=== PATIENT | male | born 1985 | race Hispanic/Latino ===

== ENCOUNTER 2017-07-28 16:06 | Emergency (ER) | payer SELFPAY ==
[~2017-07-28] VITALS: Ht 182.9 cm; Wt 61.2 kg
[~2017-07-28 16:06] MED LIST: CIPR500S2 PO; CLIN300C11 PO; MAGIC MOUTHWASH BU; PRM25T PO; PROM25TA14 PO; TRAM50TA2 PO; VALA10004 PO
[2017-07-28] MEDS ORDERED: NS IV 1000 ML 1,000 ML IV ONE (16:11)
--- OUTSIDE RECORDS SUMMARY | 2017-07-28 16:13 | XMS REPORT ---
Author Author MUSA SALGADO [facility] Address [address] [place] [address] Care Team Providers Care Configuration Release Manager Name Role Phone MUSA SALGADO Unavailable PROBLEMS Type Condition ICD9-CM Code EMX14-DF Code Onset Dates Condition Status SNOMED Code Problem Impulse control disorder F63.9 Active 97790667 Problem Social phobia F40.10 Active 42371627 Problem Bipolar affective, depress, unspec F31.30 Active 239410530 Problem Depressive disorder, not elsewhere classified F32.9 Active 02149688 Problem Generalized anxiety disorder F41.1 Active 52214931 Problem Drug dependence F19.20 Active 723041032 Problem Primary insomnia F51.01 Active 8401949 Problem Mood disorder F39 Active 71550214 Problem Other schizophrenia F20.89 Active 73334651 Problem Bipolar 1 disorder F31.9 Active 654875664 Problem Other stimulant dependence, 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 VITAL SIGNS MEDICATIONS Unknown Medications RESULTS No Results PROCEDURES Procedure Date Ordered Related Diagnosis Body Site Psych diagnostic evaluation, established patient Dec 06, 2016 IMMUNIZATIONS No Known Immunizations
--- OUTSIDE RECORDS SUMMARY | 2017-07-28 16:13 | XMS REPORT ---
Author Author DRE ZUÑIGA [facility] eClinicalWorks Address Unknown Phone Unavailable Care Team Providers Care Grind Operator Name Role Phone DRE ZUÑIGA CP Unavailable Allergies, Adverse Reactions, Alerts Substance Reaction Event Type N.K.D.A. Info Not Available Non Drug Allergy Problems Problem Type Condition Code Onset Dates Condition Status Problem Unspecified drug dependence, unspecified abuse 304.90 Active Problem Bipolar I disorder, most recent episode (or current) depressed, unspecified 296.50 Active Problem Generalized anxiety disorder 300.02 Active Problem Anxiety state, unspecified 300.00 Active Assessment Mouth ulcer K12.1 Active Problem Impulse control disorder, unspecified 312.30 Active Problem Depressive disorder, not elsewhere classified 311 Active Medications Medication Code System Code Instructions Start Date End Date Status Dosage Amoxicillin [facility] [address]-55 875 MG Orally every 12 hrs Jul 06, 2016 Jul 16, 2016 1 tablet Chlorhexidine Gluconate [facility] [address]-54 0.12 % Mouth/Throat twice daily Jul 06, 2016 Jul 16, 2016 15 mls Procedures Procedure Coding System Code Date Office Visit, Est Pt., Level 3 CPT-4 60524 Jul 06, 2016 Vital Signs Date/Time: Jul 06, 2016 Blood Pressure Systolic 112 mmHg Cardiac Monitoring Heart Rate 96 bpm Weight 137.8 lbs Blood Pressure Diastolic 76 mmHg Results No Known Results Summary Purpose eClinicalWorks Submission
--- OUTSIDE RECORDS SUMMARY | 2017-07-28 16:13 | XMS REPORT | Continuity of Care Document ---
Author Author [facility] Address Unknown Phone Unavailable Allergies Active Description Code Type Severity Reaction Onset Reported/Identified Relationship to Patient Clinical Status Yes hydrocodone [id number] Drug Allergy Unknown N/A 06/30/2014 Medications Problems Date Dx Coded Attending Type Code Diagnosis Diagnosed By 05/12/2009 MUSA TORREZ 682.0 SKIN ABSCESS OF THE FACE 05/26/2010 MUSA TORREZ 919.5 INSECT BITE INFECTED 05/26/2010 MUSA TORREZ V15.06 ALLERGY TO INSECTS AND ARACHNIDS 05/17/2013 AGUSTIN VICENTE MD Ot 883.0 OPEN WOUND OF FINGER 05/17/2013 AGUSTIN VICENTE MD Ot 914.0 ABRASION HAND 05/17/2013 AGUSTIN VICENTE MD Ot E000.8 OTHER EXTERNAL CAUSE STATUS 05/17/2013 AGUSTIN VICENTE MD Ot E849.0 ACCIDENT IN HOME 05/17/2013 AGUSTIN VICENTE MD Ot E920.8 ACC-CUTTING INSTRUM NEC 06/23/2014 KAMILA NAILS MD Ot 276.51 DEHYDRATION 06/23/2014 KAMILA NAILS MD Ot 599.0 URIN TRACT INFECTION NOS 06/23/2014 KAMILA NAILS MD Ot 787.01 NAUSEA WITH VOMITING 06/23/2014 KAMILA NAILS MD Ot 787.03 VOMITING ALONE 07/01/2014 EDISON MATT DO Ot 276.51 DEHYDRATION 07/01/2014 EDISON MATT DO Ot 276.8 HYPOPOTASSEMIA 07/01/2014 EDISON MATT DO Ot 305.00 ALCOHOL ABUSE-UNSPEC 07/01/2014 EDISON MATT DO Ot 305.20 CANNABIS ABUSE-UNSPEC 07/01/2014 EDISON MATT DO Ot 305.70 AMPHETAMINE ABUSE-UNSPEC 07/01/2014 EDISON MATT DO Ot 518.81 ACUTE RESPIRATORY FAILURE 07/01/2014 EDISON MATT DO Ot 969.72 POISONING BY AMPHETAMINES 07/01/2014 EDISON MATT DO Ot E849.0 ACCIDENT IN HOME 07/01/2014 EDISON MATT DO Ot 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.3 SUICIDE-PSYCHOTROPIC AGT 07/15/2014 DAMIAN EUGENEMF, MUSA W 296.50 MO BIPOLAR I DEPRESSED UNSPECIFIED 07/15/2014 DAMIAN LCMF, MUSA W 300.00 AN ANXIETY UNSPEC 07/15/2014 DAMIAN LCMF, MUSA W 300.02 AN GEN ANXIETY 07/15/2014 DAMIAN LCMF, MUSA W 304.90 SA OTHER SUB ABUSE 07/15/2014 DAMIAN JABIERMF, MUSA W 311 DEPRESSIVE DISORDER NOS 07/15/2014 DAMIAN MF, MUSA W 312.30 I IMPULSE CONTROL DISORDER NOS 10/26/2015 JULES GARCIA, AGUSTIN Jessica Ot F17.210 NICOTINE DEPENDENCE, CIGARETTES, UNCOMPL 10/26/2015 JULES GARCIA, AGUSTIN A Ot R10.9 UNSPECIFIED ABDOMINAL PAIN 10/26/2015 JULES GARCIA, AGUSTIN A Ot R11.10 VOMITING, UNSPECIFIED 12/08/2015 LOC REID CHARGEBACK SPECIALIST Ot F11.10 OPIOID ABUSE, UNCOMPLICATED 12/08/2015 LOC REID CHARGEBACK SPECIALIST Ot F12.10 CANNABIS ABUSE, UNCOMPLICATED 12/08/2015 LOC REID CHARGEBACK SPECIALIST Ot F15.10 OTHER STIMULANT ABUSE, UNCOMPLICATED 12/08/2015 LOC REID CHARGEBACK SPECIALIST Ot M79.5 RESIDUAL FOREIGN BODY IN SOFT TISSUE 12/08/2015 LOC REID CHARGEBACK SPECIALIST Ot R06.00 DYSPNEA, UNSPECIFIED 07/08/2016 MORALES NATION DO Ot A69.1 OTHER VINCENT'S INFECTIONS 07/08/2016 MORALES NATION DO Ot F17.210 NICOTINE DEPENDENCE, CIGARETTES, UNCOMPL 07/08/2016 MORALES NATION DO Ot K04.7 PERIAPICAL ABSCESS WITHOUT SINUS 07/11/2016 MORALES NATION DO Ot A69.1 OTHER VINCENT'S INFECTIONS 07/11/2016 MORALES NATION DO Ot F17.210 NICOTINE DEPENDENCE, CIGARETTES, UNCOMPL 07/11/2016 MORALES NATION DO Ot K04.7 PERIAPICAL ABSCESS WITHOUT SINUS Procedures Code Description Performed By Performed On 96.71 06/30/2014 [id number] PSYCH DIAGNOSTIC EVALUATION 07/15/2014 Results Encounters ACCT No. Visit Date/Time Discharge Status Pt. Type Provider Facility Loc./Unit Complaint [id number] 07/15/2014 12:41:00 07/15/2014 23: 59:59 CLS Outpatient MUSA TORREZ [id number] 07/05/2016 19:52:00 2015 20:17:00 DIS Outpatient MORALES NATION DO [facility] ER ABCESS ON LOWER JAW [id number] 12/08/2015 13:36:00 2015 17:28:00 DIS Emergency LOC REID APRN [facility] ER [id number] 10/26/2015 11:14:00 2014 12:41:00 DIS Emergency AGUSTIN VICENTE MD [facility] ER [id number] 06/30/2014 21:50:00 2013 15:20:00 DIS Inpatient SHAKA BEAUCHAMP EDISON [facility] ICU [id number] 06/23/2014 07:17:00 2013 09:53:00 DIS Emergency KAIMLA NAILS MD [facility] ER [id number] 05/17/2013 02:23:00 2012 03:03:00 DIS Emergency AGUSTIN VICENTE MD [facility] ER
[2017-07-28] MEDS ORDERED: ONDANSETRON 4 MG/2 ML (SDV) Z0FRAN IVP ONE (16:15)
[2017-07-28 17:27] LABS: BASOPHILS % (AUTO) 0 % (0-10); EOSINOPHILS # (AUTO) 0.1 10^3/uL (0.0-0.3); EOSINOPHILS % (AUTO) 0 % (0-10); LYMPHOCYTES # (AUTO) 1.6 X 10^3 (1.0-4.0); LYMPHOCYTES % (AUTO) 11 % (12-44); MEAN CORPUSCULAR HEMOGLOBIN 31 PG (25-34); MEAN CORPUSCULAR HGB CONC 35 G/DL (32-36); MEAN CORPUSCULAR VOLUME 89 FL (80-99); MEAN PLATELET VOLUME 8.8 FL (7.4-10.4); MONOCYTES # (AUTO) 0.7 X 10^3 (0.0-1.0); MONOCYTES % (AUTO) 5 % (0-12); NEUTROPHILS # (AUTO) 12.2 X 10^3 (1.8-7.8); NEUTROPHILS % (AUTO) 84 % (42-75); PLATELET COUNT 226 10^3/uL (130-400); RED BLOOD COUNT 5.14 10^6/uL (4.35-5.85); RED CELL DISTRIBUTION WIDTH 12.2 % (10.0-14.5); WHITE BLOOD COUNT 14.5 10^3/uL (4.3-11.0)
[2017-07-28 17:48] LABS: EOSINOPHILS % (MANUAL) 1 %; LYMPHOCYTES % (MANUAL) 15 %; NEUTROPHILS % (MANUAL) 81 %
[2017-07-28 17:52] LABS: ALANINE AMINOTRANSFERASE 65 U/L (0-55); ALBUMIN 4.7 GM/DL (3.2-4.5); ANION GAP 12 MMOL/L (5-14); ASPARTATE AMINO TRANSFERASE 42 U/L (5-34); BILIRUBIN,TOTAL 0.8 MG/DL (0.1-1.0); BLOOD UREA NITROGEN 10 MG/DL (7-18); BUN/CREATININE RATIO 10; CALCIUM 9.7 MG/DL (8.5-10.1); CARBON DIOXIDE 25 MMOL/L (21-32); CHLORIDE 104 MMOL/L (98-107); CREATININE SERUM 0.98 MG/DL (0.60-1.30); GFR ESTIMATED > 60; GLUCOSE 105 MG/DL (70-105); POTASSIUM 3.9 MMOL/L (3.6-5.0); SODIUM 141 MMOL/L (135-145); TOTAL PROTEIN 7.9 GM/DL (6.4-8.2)
--- NOTE | 2017-07-28 18:06 | Diagnostic Imaging Report ---
INDICATION: Pain and weight loss with vomiting. COMPARISON: 07/01/2014 FINDINGS: Two views of the chest are obtained. The heart size is normal. The pulmonary vessels appear unremarkable. There is no pneumothorax, mediastinal widening or pleural fluid demonstrated. The lungs are clear. The osseous structures appear unremarkable. IMPRESSION: No acute abnormality is demonstrated. Dictated by: Dictated on workstation # [id number]
[2017-07-28 18:29] LABS: BILIRUBIN,URINE NEGATIVE (NEGATIVE); KETONES,URINE NEGATIVE (NEGATIVE); LEUKOCYTE ESTERASE ,URINE NEGATIVE (NEGATIVE); NITRITE,URINE NEGATIVE (NEGATIVE); PH,URINE 5 (5-9); PROTEIN,URINE NEGATIVE (NEGATIVE); UROBILINOGEN,URINE 1 MG/DL (NORMAL)
[2017-07-28 18:36] LABS: CALCIUM OXALATE CRYSTALS,UR FEW /LPF; SQUAMOUS EPITHELIAL CELL,UR RARE /HPF; WBC,URINE 0-2 /HPF
[2017-07-28] MEDS ORDERED: NS 100 ML (IVPB) BAG IV ONE (19:15)
[2017-07-28] MEDS ORDERED: IOHEXOL 350 MG/ML 100 ML (OMNIPAQUE 350) VIAL IV ONE (19:15)
--- NOTE | 2017-07-28 19:20 | ED Abdominal Pain ---
General Chief Complaint: Abdominal/GI Problems Stated Complaint: DISORIENTED,WEAKNESS,VOMITING Nursing Triage Note: c/o intermittant vomiting/abd pain/weight loss for last 3-4 months. Sepsis Screen: No Definite Risk Source of Information: Patient Exam Limitations: No Limitations (ARACELI YANEZ MD) History of Present Illness Time Seen By Provider: 17:05 Initial Comments This 32-year-old man presents to the emergency room with complaints of left lower quadrant abdominal pain, nausea, vomiting with eating, chills, and occasional dysuria over the past 2-3 weeks. He reports the vomiting has been daily when he eats. Urine has been darker recently. Patient has history of remote IV drug use. He requests testing for hepatitis C although he says he has been tested since his last use. He declines HIV testing. He admits to drinking 2 or 3 days per week about 6 shots of hard alcohol per setting. He denies any constipation or diarrhea. He has treated for bipolar disorder and explosive temper at [facility] by Dr. Rowland. His primary care providers Lico Sorensen. (ARACELI YANEZ MD) Initial Comments PT also admits a 30# weight loss in the past 2 months. unexplained. (SANDRA TREVINO) Allergies and Home Medications Allergies Coded Allergies: hydrocodone (Verified Allergy, Unknown, 06/30/14) Home Medications Clindamycin HCl 300 Mg Capsule, 300 MG PO QID, #40 Prescribed by: MORALES NATION on 07/05/162010 Promethazine HCl 25 Mg Tablet, 25 MG PO Q6H PRN for NAUSEA/VOMITING, #10 Prescribed by: AGUSTIN VICENTE on 10/26/15 1212 Tramadol HCl 50 Mg Tablet, 50 MG PO Q4H PRN for PAIN, #14 Prescribed by: AGUSTIN VICENTE on 10/26/15 1212 Valacyclovir HCl 1,000 Mg Tablet, 1,000 MG PO TID, #30 Prescribed by: MORALES NATION on 07/05/162010 [Magic Mouthwash] , 0 BU Q 2 HOURS Prescribed by: MORALES NATION on 07/05/162010 Review of Systems Constitutional: see HPI, chills, diaphoresis EENTM: No Symptoms Reported Respiratory: No Symptoms Reported Cardiovascular: No Symptoms Reported Gastrointestinal: See HPI Genitourinary: See HPI Musculoskeletal: no symptoms reported Skin: no symptoms reported Psychiatric/Neurological: No Symptoms Reported Endocrine: No Symptoms Reported (ARACELI YANEZ MD) Past Xmfplek-Dzpype-Rpwouz Hx Patient Social History Alcohol Use: Regular Use Number of Drinks Today: 6 Alcohol Beverage of Choice: Other (hard alcohol) Recreational Drug Use: Yes Drug of Choice: marijuana Smoking Status: Current Everyday Smoker Type Used: Cigarettes Recent Foreign Travel: No Contact w/Someone Who Travel: No Recent Infectious Disease Expo: No Recent Hopitalizations: No (ARACELI YANEZ MD) Immunizations Up To Date Tetanus Booster (TDap): More than 5yrs (ARACELI YANEZ MD) Seasonal Allergies Seasonal Allergies: No (ARACELI YANEZ MD) Surgeries History of Surgeries: Yes Surgeries: Orthopedic (ARACELI YANEZ MD) Respiratory History of Respiratory Disorde: Yes Respiratory Disorders: Asthma (ARACELI YANEZ MD) Cardiovascular History of Cardiac Disorders: No (ARACELI YANEZ MD) Neurological History of Neurological Disord: No (ARACELI YANEZ MD) Reproductive System Hx Reproductive Disorders: No Sexually Transmitted Disease: No HIV/AIDS: No (ARACELI YANEZ MD) Genitourinary History of Genitourinary Disor: No (ARACELI YANEZ MD) Gastrointestinal History of Gastrointestinal Di: No Gastrointestinal Disorders: Ulcer (ARACELI YANEZ MD) Musculoskeletal History of Musculoskeletal Dis: No (ARACELI YANEZ MD) Endocrine History of Endocrine Disorders: No (ARACELI YANEZ MD) HEENT History of HEENT Disorders: No (ARACELI YANEZ MD) Cancer History of Cancer: No (ARACELI YANEZ MD) Psychosocial History of Psychiatric Problem: Yes Behavioral Health Disorders: ADD/ADHD, Anxiety, Suicide Attempts, Bipolar, Depression (ARACELI YANEZ MD) Integumentary History of Skin or Integumenta: No (ARACELI YANEZ MD) Family Medical History Significant Family History: No Pertinent Family Hx, Cancer (lung Aura leukemia) , COPD, Seizures Family Medial History: FHx: COPD (chronic obstructive pulmonary disease) FHx: leukemia 19 FATHER Seizure disorder 19 MOTHER No Family History of: Cardiovascular disease Dementia Diabetes mellitus Myocardial infarction (ARACELI YANEZ MD) Family Medial History: FHx: COPD (chronic obstructive pulmonary disease) FHx: leukemia 19 FATHER Seizure disorder 19 MOTHER No Family History of: Cardiovascular disease Dementia Diabetes mellitus Myocardial infarction (SANDRA TREVINO) Physical Exam Vital Signs VS - Last 72 Hours, by Label 07/28/17 17:04 Temp 97.5 Pulse 90 Resp 18 B/P (MAP) 118/70 O2 Delivery Room Air (SANDRA TREVINO) Vital Signs Capillary Refill : Less Than 3 Seconds (ARACELI YANEZ MD) General Appearance: WD/WN, no apparent distress HEENT: PERRL/EOMI, normal ENT inspection, pharynx normal Neck: normal inspection Respiratory: lungs clear, normal breath sounds, no respiratory distress, no accessory muscle use Cardiovascular: regular rate, rhythm, no edema, no murmur Gastrointestinal: normal bowel sounds, soft, tenderness (left lower quadrant) Extremities: normal inspection, no pedal edema Back: normal inspection, no CVA tenderness Neurologic/Psychiatric: slackline operator II-XII nml as tested, no motor/sensory deficits, alert, normal mood/affect, oriented x 3 Skin: normal color, diaphoresis (ARACELI YANEZ MD) Progress/Results/Core Measures Results/Orders Lab Results Laboratory Tests Test 07/28/17 17:20 07/28/17 17:35 07/28/17 17:46 07/28/17 18:18 Range/Units White Blood Count 14.5 H 4.3-11.0 10^3/uL Red Blood Count 5.14 4.35-5.85 10^6/uL Hemoglobin 15.9 13.3-17.7 G/DL Hematocrit 46 40-54 % Mean Corpuscular Volume 89 80-99 FL Mean Corpuscular Hemoglobin 31 25-34 PG Mean Corpuscular Hemoglobin Concent 35 32-36 G/DL Red Cell Distribution Width 12.2 10.0-14.5 % Platelet Count 226 130-400 10^3/uL Mean Platelet Volume 8.8 7.4-10.4 FL Neutrophils (%) (Auto) 84 H 42-75 % Lymphocytes (%) (Auto) 11 L 12-44 % Monocytes (%) (Auto) 5 0-12 % Eosinophils (%) (Auto) 0 0-10 % Basophils (%) (Auto) 0 0-10 % Neutrophils # (Auto) 12.2 H 1.8-7.8 X 10^3 Lymphocytes # (Auto) 1.6 1.0-4.0 X 10^3 Monocytes # (Auto) 0.7 0.0-1.0 X 10^3 Eosinophils # (Auto) 0.1 0.0-0.3 10^3/uL Basophils # (Auto) 0.0 0.0-0.1 10^3/uL Neutrophils % (Manual) 81 % Lymphocytes % (Manual) 15 % Monocytes % (Manual) 3 % Eosinophils % (Manual) 1 % Blood Morphology Comment NORMAL Sodium Level 141 135-145 MMOL/L Potassium Level 3.9 3.6-5.0 MMOL/L Chloride Level 104 98-107 MMOL/L Carbon Dioxide Level 25 21-32 MMOL/L Anion Gap 12 5-14 MMOL/L Blood Urea Nitrogen 10 7-18 MG/DL Creatinine 0.98 0.60-1.30 MG/DL Estimat Glomerular Filtration Rate > 60 BUN/Creatinine Ratio 10 Glucose Level 105 70-105 MG/DL Calcium Level 9.7 8.5-10.1 MG/DL Magnesium Level 2.0 1.8-2.4 MG/DL Total Bilirubin 0.8 0.1-1.0 MG/DL Aspartate Amino Transf (AST/SGOT) 42 H 5-34 U/L Alanine Aminotransferase (ALT/SGPT) 65 H 0-55 U/L Alkaline Phosphatase 58 40-136 U/L Total Protein 7.9 6.4-8.2 GM/DL Albumin 4.7 H 3.2-4.5 GM/DL Lipase 11 8-78 U/L Serum Alcohol < 10 <10 MG/DL Urine Color YELLOW Urine Clarity CLEAR Urine pH 5 5-9 Urine Specific [place] 1.025 H 1.016-1.022 Urine Protein NEGATIVE NEGATIVE Urine Glucose (UA) NEGATIVE NEGATIVE Urine Ketones NEGATIVE NEGATIVE Urine Nitrite NEGATIVE NEGATIVE Urine Bilirubin NEGATIVE NEGATIVE Urine Urobilinogen 1 NORMAL MG/DL Urine Leukocyte Esterase NEGATIVE NEGATIVE Urine RBC (Auto) 1+ H NEGATIVE Urine RBC NONE /HPF Urine WBC 0-2 /HPF Urine Squamous Epithelial Cells RARE /HPF Urine Crystals PRESENT H /LPF Urine Calcium Oxalate Crystals FEW H /LPF Urine Bacteria TRACE /HPF Urine Casts NONE /LPF Urine Mucus SMALL H /LPF Urine Culture Indicated NO Urine Opiates Screen NEGATIVE NEGATIVE Urine Oxycodone Screen NEGATIVE NEGATIVE Urine Methadone Screen NEGATIVE NEGATIVE Urine Propoxyphene Screen NEGATIVE NEGATIVE Urine Barbiturates Screen NEGATIVE NEGATIVE Ur Tricyclic Antidepressants Screen POSITIVE H NEGATIVE Urine Phencyclidine Screen NEGATIVE NEGATIVE Urine Amphetamines Screen NEGATIVE NEGATIVE Urine Methamphetamines Screen NEGATIVE NEGATIVE Urine Benzodiazepines Screen NEGATIVE NEGATIVE Urine Cocaine Screen NEGATIVE NEGATIVE Urine Cannabinoids Screen POSITIVE H NEGATIVE (SANDRA TREVINO) Medications Given in ED Current Medications Medications Dose Ordered Sig/Berna Route Start Time Stop Time Status Last Admin Dose Admin Iohexol 100 ml ONCE ONCE IV 07/28/17 19:15 07/28/17 19:16 DC 07/28/17 19:39 100 ML Ondansetron HCl 8 mg ONCE ONCE IVP 07/28/17 16:15 07/28/17 16:16 DC 07/28/17 17:24 8 MG Sodium Chloride 100 ml ONCE ONCE IV 07/28/17 19:15 07/28/17 19:16 DC 07/28/17 19:39 80 ML Sodium Chloride 1,000 ml @ 0 mls/hr Q0M ONCE IV 07/28/17 16:11 07/28/17 16:13 DC 07/28/17 17:24 0 MLS/HR (SANDRA TREVINO) Vital Signs/I&O Vital Sign - Last 12Hours 07/28/17 17:04 Temp 97.5 Pulse 90 Resp 18 B/P (MAP) 118/70 O2 Delivery Room Air (SANDRA TREVINO) Blood Pressure Mean: 86 Progress Note : Time: 19:00 Progress Note Patient's nausea was treated with Zofran. IV fluids were infused. Labs demonstrated leukocytosis without without any other major abnormalities. Further assessment was offered with CT scan. Patient would like to have this performed. Care of this patient was transferred to Dr. Trevino at this time. (ARACELI YANEZ MD) Progress Note : Time: 20:14 Progress Note No overt reason for his weight loss or N/V/ will send Zofran and have him F/U later this week or early next with PCP for the send out labs. Rec strongly that he be tested for HIV. Last check was 4 years ago. Pt just wants to go home at this time. (SANDRA TREVINO) Diagnostic Imaging Diagonstic Imaging: CT Plain Films/CT/US/NM/MRI: abdomen, pelvis Comments NAME: REGAN ARAYA [facility] REC#: [id number] PT STATUS: REG ER : 1985 PHYSICIAN: ARACELI YANEZ MD ADMIT DATE: 07/28/17/ER Draft Date of Exam:07/28/17 CT ABDOMEN/PELVIS W PROCEDURE: CT abdomen and pelvis with contrast. TECHNIQUE: Multiple contiguous axial images were obtained through the abdomen and pelvis after administration of intravenous contrast. INDICATION: Abdominal pain with nausea and emesis. COMPARISON is made to the study of 05/11/2008. FINDINGS: There is low-density in the liver which is likely due to fatty infiltration. No focal hepatic lesion is identified. There is a 1 cm cystic structure seen in the medial spleen. There is no evidence of gallbladder or pancreatic lesion identified. The adrenal glands and kidneys are unremarkable in appearance. There is no evidence of free fluid. There is no pathologically enlarged adenopathy. No free fluid is seen in the abdomen or pelvis. The partially opacified urinary bladder reveals no additional abnormality. IMPRESSION: Development of a 1 cm cystic structure in the spleen which has a benign appearance. Otherwise, there is hepatic steatosis without acute abnormality seen within the abdomen or pelvis. In particular, there is no evidence of appendiceal inflammation. Dictated on workstation # [id number] Dict: 07/28/171952 Trans: 07/28/172004 [facility] [id number] Interpreted by: SAVANNAH COLES MD Electronically signed by: Reviewed: Reviewed by Me Diagonstic Imaging: Xray Plain Films/CT/US/NM/MRI: chest Comments NAME: REGAN ARAYA [facility] REC#: [id number] PHYSICIAN: ARACELI YANEZ MD CC: ARACELI YANEZ MD; TIMOTEO VICENTE DO Page 1 of 1 RADIOLOGY REPORT [facility] [place], [place] CC: ARACELI YANEZ MD; TIMOTEO VICENTE DO Page 1 of 1 RADIOLOGY REPORT NAME: REGAN ARAYA [facility] REC#: [id number] PT STATUS: REG ER : 1985 PHYSICIAN: ARACELI YANEZ MD ADMIT DATE: 07/28/17/ER Signed Date of Exam: 07/28/17 CHEST PA/LAT (2 VIEW) INDICATION: Pain and weight loss with vomiting. COMPARISON: 07/01/2014 FINDINGS: Two views of the chest are obtained. The heart size is normal. The pulmonary vessels appear unremarkable. There is no pneumothorax, mediastinal widening or pleural fluid demonstrated. The lungs are clear. The osseous structures appear unremarkable. IMPRESSION: No acute abnormality is demonstrated. Dictated by: Dictated on workstation # [id number] Dict: 07/28/171801 Trans: 07/28/171805 Interpreted by: TIMOTEO VICENTE DO Electronically signed by: TIMOTEO VICENTE DO 07/28/171805 Reviewed: Reviewed by Me (SANDRA TREVINO) Departure Impression Impression: Primary Impression: Unexplained weight loss Additional Impression: Nausea and vomiting Qualified Codes: R11.2 - Nausea with vomiting, unspecified Disposition: HOME, SELF-CARE Condition: Improved Departure-Patient Inst. Decision time for Depature: 20:22 (SANDRA TREVINO) Referrals: NO,LOCAL PHYSICIAN (PCP) [place] [facility] [facility] [place]ructions: Nausea and Vomiting, Adult (DC) Add. Discharge Instructions: take Zofran under the tongue every 6 hours and let it dissolve as needed for nausea or vomting. Call Lico Sorensen at [facility] at [phone] tomorrow morning to get seen later this week or next to follow up the labs done today and further workup of your Nausea dn unexplained weight loss. All discharge instructions reviewed with patient and/or family. Voiced understanding. Scripts Ondansetron (Ondansetron Odt) 4 Mg Tab.rapdis 4 MG PO Q6H Y for NAUSEA/VOMITING, #12 TAB 0 Refills Prov: SANDRA TREVINO 07/28/17 Copy Copies To 1: CAMILO LAWTON JOSHUA T MD Jul 28, 2017 19:20 SANDRA TREVINO Jul 28, 2017 20:10
--- NOTE | 2017-07-28 20:06 | Diagnostic Imaging Report ---
PROCEDURE: CT abdomen and pelvis with contrast. TECHNIQUE: Multiple contiguous axial images were obtained through the abdomen and pelvis after administration of intravenous contrast. INDICATION: Abdominal pain with nausea and emesis. COMPARISON is made to the study of 05/11/2008. FINDINGS: There is low-density in the liver which is likely due to fatty infiltration. No focal hepatic lesion is identified. There is a 1 cm cystic structure seen in the medial spleen. There is no evidence of gallbladder or pancreatic lesion identified. The adrenal glands and kidneys are unremarkable in appearance. There is no evidence of free fluid. There is no pathologically enlarged adenopathy. No free fluid is seen in the abdomen or pelvis. The partially opacified urinary bladder reveals no additional abnormality. IMPRESSION: Development of a 1 cm cystic structure in the spleen which has a benign appearance. Otherwise, there is hepatic steatosis without acute abnormality seen within the abdomen or pelvis. In particular, there is no evidence of appendiceal inflammation. Dictated by: Dictated on workstation # [id number]
[2017-07-28] MEDS ORDERED: ONDA4TAB11 PO ×2 (20:25→20:26)
[2017-07-28] MEDS ORDERED: RX-ONDANSETRON 4 MG ODT (ZOFRAN) PPK #4 PO STA (20:27)
[2017-07-28 20:40] VITALS: BP 110/68
[2017-07-30 06:55] LABS: HCV INDEX >11.00 Index (0.00-0.79)
[2017-07-31 08:17] LABS: CHLAMYDIA DNA URINE Not Detected (Not Detected); NEISSERIA GONORRHEA DNA URINE Not Detected (Not Detected)
== END 2017-07-28 20:40 | disposition home or self-care (01) ==
LOC: EDUNIT# 16:06 → ER 16:07
DX: R63.4 Abnormal weight loss (principal); R11.2 Nausea with vomiting, unspecified; F31.9 Bipolar disorder, unspecified; F41.9 Anxiety disorder, unspecified; F90.9 Attention-deficit hyperactivity disorder, unspecified type; J45.909 Unspecified asthma, uncomplicated; F17.210 Nicotine dependence, cigarettes, uncomplicated; Z80.6 Family history of leukemia; Z91.5 Personal history of self-harm; Z87.11 Personal history of peptic ulcer disease
CPT/HCPCS: 36415; 71020; 74177; 80053; 80074; 80306; 80320; 81000; 83690; 83735; 85007; 85027; 87491; 87591; 96361; 96374

== ENCOUNTER 2020-01-24 13:13 | Emergency (ER) | payer MEDICAID, OTHER ==
[~2020-01-24] VITALS: Ht 185.4 cm; Wt 68.1 kg
[~2020-01-24 13:13] MED LIST changes: +ONDA4TAB11 PO; -TRAM50TA2 PO; +TRM50T PO
[2020-01-24] MEDS ORDERED: TIZA4TAB4 (13:31)
[2020-01-24] MEDS ORDERED: SMZ/TMP (13:31)
--- NOTE | 2020-01-24 14:48 | ED GU-Male ---
General Chief Complaint: Male Reproductive Stated Complaint: SWOLLEN TESTICLES Nursing Triage Note: AMB TO HAS BEEN DX WITH EPIDIYMITIS. DX 01/[address] QUINTANILLA ON 12/28 CON'T TO HAVE PAIN IN ON BACTRIM WAS ON CIPRO HAS HAD PAIN FOR A MONTH. Source: patient Exam Limitations: no limitations History of Present Illness Date Seen by Provider: Jan 24, 2020 Time Seen by Provider: 14:46 Initial Comments To ER with scrotal pain for 1 month. He was initially given Cipro, no improvement, changed to Bactrim 2 weeks ago, he still on that. 2 weeks ago he had a CT, ultrasound of the testicles done showing epididymitis (studies were done at [facility]). He has an appointment with Dr. Lang from urology at [place] on this Friday. He is here today because of pain. Severity/Quality: moderate Location: scrotal Activities at Onset: none Allergies and Home Medications Allergies Coded Allergies: lithium (Verified Allergy, Unknown, 01/24/20) paliperidone (Verified Allergy, Unknown, 01/24/20) Home Medications Hydrocodone/Acetaminophen 1 Each Tablet, 1 TAB PO Q6H Prescribed by: LOC REID on 01/24/20 1536 Patient Home Medication List Home Medication List Reviewed: Yes Review of Systems Review of Systems Constitutional: see HPI EENTM: see HPI Respiratory: no symptoms reported Cardiovascular: no symptoms reported Genitourinary: see HPI, pain Musculoskeletal: no symptoms reported Skin: no symptoms reported Psychiatric/Neurological: No Symptoms Reported Endocrine: No Symptoms Reported Past Txucuct-Xpwptn-Zlseqx Hx Patient Social History Alcohol Use: Denies Use Number of Drinks Today: II Alcohol Beverage of Choice: Other Recreational Drug Use: No Drug of Choice: marijuana Smoking Status: Current Everyday Smoker Type Used: Cigarettes Recent Foreign Travel: No Contact w/Someone Who Travel: No Recent Infectious Disease Expo: No Recent Hopitalizations: No Immunizations Up To Date Tetanus Booster (TDap): More than 5yrs Seasonal Allergies Seasonal Allergies: No Past Medical History Surgeries: Yes Orthopedic Respiratory: Yes Asthma Cardiac: No Neurological: No Reproductive Disorders: No Sexually Transmitted Disease: No HIV/AIDS: No Genitourinary: No Gastrointestinal: No Ulcer Musculoskeletal: No Endocrine: No HEENT: No Cancer: No Psychosocial: Yes ADD/ADHD, Anxiety, Suicide Attempts, Bipolar, Depression Integumentary: No Blood Disorders: No Family Medical History FHx: COPD (chronic obstructive pulmonary disease) FHx: leukemia 19 FATHER Seizure disorder 19 MOTHER No Family History of: Cardiovascular disease Dementia Diabetes mellitus Myocardial infarction No Pertinent Family Hx, Cancer, COPD, Seizures Physical Exam Vital Signs Vital Signs - First Documented 01/24/20 13:18 Temp 36.9 Pulse 82 Resp 18 B/P (MAP) 111/73 (86) Pulse Ox 100 O2 Delivery Room Air Capillary Refill : Less Than 3 Seconds Height, Weight, BMI Height: 6'0" Weight: 135lbs. 12.0oz. [id number]; 19.00 BMI Method:Stated General Appearance: WD/WN, no apparent distress, thin HEENT: PERRL/EOMI, normal ENT inspection Neck: non-tender, full range of motion Respiratory: no respiratory distress, no accessory muscle use Gastrointestinal: normal bowel sounds, non tender Male: testicular tenderness (bilateral testicular tenderness, slight enlargement of the left testicle as compared to the right, the swelling is very minimal at best.) Extremities: normal range of motion, non-tender Neurologic/Psychiatric: alert, normal mood/affect, oriented x 3 Skin: normal color, warm/dry Progress/Results/Core Measures Suspected Sepsis Recent Fever Within 48 Hours: No Infection Criteria Present: Documented Infection New/Unexplained Altered Menta: No Sepsis Screen: No Definite Risk SIRS Temperature: Pulse: 82 Respiratory Rate: 18 Blood Pressure 111 /73 Mean: 86 Results/Orders Lab Results Laboratory Tests Test 01/24/20 14:38 Range/Units Urine Color YELLOW Urine Clarity CLEAR Urine pH 7.0 5-9 Urine Specific [place] 1.010 L 1.016-1.022 Urine Protein NEGATIVE NEGATIVE Urine Glucose (UA) NEGATIVE NEGATIVE Urine Ketones NEGATIVE NEGATIVE Urine Nitrite NEGATIVE NEGATIVE Urine Bilirubin NEGATIVE NEGATIVE Urine Urobilinogen 0.2 < = 1.0 MG/DL Urine Leukocyte Esterase NEGATIVE NEGATIVE Urine RBC (Auto) NEGATIVE NEGATIVE Urine RBC NONE /HPF Urine WBC NONE /HPF Urine Squamous Epithelial Cells RARE /HPF Urine Crystals NONE /LPF Urine Bacteria NEGATIVE /HPF Urine Casts NONE /LPF Urine Mucus NEGATIVE /LPF Urine Culture Indicated NO Urine Opiates Screen NEGATIVE NEGATIVE Urine Oxycodone Screen NEGATIVE NEGATIVE Urine Methadone Screen NEGATIVE NEGATIVE Urine Propoxyphene Screen NEGATIVE NEGATIVE Urine Barbiturates Screen NEGATIVE NEGATIVE Ur Tricyclic Antidepressants Screen NEGATIVE NEGATIVE Urine Phencyclidine Screen NEGATIVE NEGATIVE Urine Amphetamines Screen NEGATIVE NEGATIVE Urine Methamphetamines Screen NEGATIVE NEGATIVE Urine Benzodiazepines Screen NEGATIVE NEGATIVE Urine Cocaine Screen NEGATIVE NEGATIVE Urine Cannabinoids Screen NEGATIVE NEGATIVE My Orders Orders - LOC REID APRN Ua Culture If Indicated (01/24/20 14:41) Drug Screen Stat (Urine) (01/24/20 14:41) Us Scrotum (Testicle) [id number] (01/24/20 14:41) Hydrocodone/Apap 5/325 Tablet (Lortab 5 (01/24/20 15:00) Medications Given in ED Vital Signs/I&O 01/24/20 01/24/20 13:18 15:41 Temp 36.9 36.9 Pulse 82 82 Resp 18 18 B/P (MAP) 111/73 (86) 111/73 (86) Pulse Ox 100 100 O2 Delivery Room Air Capillary Refill : Less Than 3 Seconds Blood Pressure Mean: 86 Departure Impression Primary Impression: Testicular pain Additional Impression: Hydrocele Disposition: 01 HOME, SELF-CARE Condition: Stable Departure-Patient Inst. Decision time for Depature: 15:34 Referrals: NO,LOCAL PHYSICIAN (PCP/Family) Primary Care Physician Patient Instructions: Epididymitis (DC), Hydrocele/Varicocele (DC), Prostatitis (DC) Add. Discharge Instructions: 1. 1. Return to ER for any concerns. Continue the antibiotics. Keep her appointment with urologist this Friday. 2. All discharge instructions reviewed with patient and/or family. Voiced understanding. Scripts Hydrocodone/Acetaminophen ([place] 5-325 Tablet) 1 Each Tablet 1 TAB PO Q6H for Pain MDD 10 TABS for 7 Days, #10 TAB Prov: LOC REID APRN 01/24/20 LOC REID APRN Jan 24, 2020 14:48
[2020-01-24 14:50] LABS: BILIRUBIN,URINE NEGATIVE (NEGATIVE); CLARITY,URINE CLEAR; COLOR,URINE YELLOW; GLUCOSE, URINE (UA) NEGATIVE (NEGATIVE); KETONES,URINE NEGATIVE (NEGATIVE); LEUKOCYTE ESTERASE ,URINE NEGATIVE (NEGATIVE); NITRITE,URINE NEGATIVE (NEGATIVE); PROTEIN,URINE NEGATIVE (NEGATIVE)
[2020-01-24] MEDS ORDERED: HYDROcodone/APAP 5 MG/325 MG (LORTAB) TAB PO ONE (15:00)
[2020-01-24 15:09] LABS: BACTERIA,URINE NEGATIVE /HPF; SQUAMOUS EPITHELIAL CELL,UR RARE /HPF
[2020-01-24 15:29] LABS: AMPHETAMINE SCREEN, URINE NEGATIVE (NEGATIVE); BARBITURATE SCREEN URINE NEGATIVE (NEGATIVE); BENZODIAZEPINES SCREEN URINE NEGATIVE (NEGATIVE); CANNABINOID SCREEN, URINE NEGATIVE (NEGATIVE); COCAINE SCREEN URINE NEGATIVE (NEGATIVE); METHADONE STAT NEGATIVE (NEGATIVE); METHAMPHETAMINE SCREEN URINE S NEGATIVE (NEGATIVE); OPIATE SCREEN URINE NEGATIVE (NEGATIVE); OXYCODONE STAT NEGATIVE (NEGATIVE); PROPOXYPHENE STAT NEGATIVE (NEGATIVE); TRICYCLIC ANTIDEPRESSANTS SCRE NEGATIVE (NEGATIVE)
[2020-01-24] MEDS ORDERED: HYDR-4226 PO (15:35)
[2020-01-24 15:41] VITALS: BP 111/73
--- NOTE | 2020-01-24 16:09 | Diagnostic Imaging Report ---
INDICATION: Swollen testicles TECHNIQUE: Real-time grayscale sonographic imaging and color vascular evaluation of the scrotum. CORRELATION STUDY: None FINDINGS: RIGHT TESTICLE: 4.7 x 2.8 x 2.4 cm. LEFT TESTICLE: 4.6 x 2.8 x 2.0 cm. The testicles are in normal location and demonstrate homogeneous echotexture. There is vascular flow to the testicles. The epididymides appear unremarkable. There is presence of small to moderate sized bilateral hydroceles. IMPRESSION: 1. Small to moderate-sized bilateral hydroceles. Otherwise, unremarkable appearing scrotal ultrasound examination. Dictated by: Dictated on workstation # [id number]
== END 2020-01-24 15:41 | disposition home or self-care (01) ==
LOC: EDUNIT# 13:13 → ER 13:14
DX: N43.3 Hydrocele, unspecified (principal); F17.210 Nicotine dependence, cigarettes, uncomplicated; Z88.8 Allergy status to other drugs, medicaments and biological substances
CPT/HCPCS: 76870; 80306; 81000

== ENCOUNTER 2020-07-27 01:44 | Emergency (ER) | payer MEDICAID ==
[~2020-07-27] VITALS: Ht 185 cm; Wt 72.0 kg
[~2020-07-27 01:44] MED LIST changes: +HYDR-4226 PO; +SMZ/TMP; +TIZA4TAB4
--- NOTE | 2020-07-27 02:01 | ED GU-Male ---
General Chief Complaint: Male Reproductive Stated Complaint: SWOLLEN TESTICLES Source: patient Exam Limitations: no limitations History of Present Illness Date Seen by Provider: Jul 27, 2020 Time Seen by Provider: 01:44 Initial Comments patient presents to ER by private conveyance with chief complaint that his testicles both feel swollen and a lot of pressure. No dysuria or discharge. He says he had the same problems a few months ago and took antibiotics. It came back yesterday and has progressively gotten worse. No history of undescended testicle, hernias or surgery. in January, 6 months ago the patient presents for similar complaints. He was being treated on Cipro and Bactrim outpatient. He was to follow-up with Dr. Lang, urology and [facility]. He had ultrasound of the testicles of that time showing epididymitis. The patient says last time he saw Dr. Mcfarlane he wasn't having any problems and was told to follow-up only as needed. He recently moved here and is wanting to follow with a local urologist. Allergies and Home Medications Allergies Coded Allergies: lithium (Verified Allergy, Unknown, 01/24/20) paliperidone (Verified Allergy, Unknown, 01/24/20) Home Medications Doxycycline Hyclate 100 Mg Tablet, 100 MG PO BID Prescribed by: SANDRA HARVEY on 07/27/20 0206 Hydrocodone/Acetaminophen 1 Each Tablet, 1 TAB PO Q6H Prescribed by: LOC REID on 01/24/20 1536 Hydrocodone/Acetaminophen 1 Each Tablet, 1 EACH PO Q6H PRN for PAIN-BREAKTHROUGH Prescribed by: SANDRA HARVEY on 07/27/20 0206 Patient Home Medication List Home Medication List Reviewed: Yes Review of Systems Review of Systems Constitutional: No chills, No diaphoresis EENTM: No ear discharge, No ear pain Respiratory: No cough, No short of breath Cardiovascular: No chest pain, No Hx of Intervention, No palpitations Gastrointestinal: No abdominal pain, No nausea, No vomiting Genitourinary: see HPI; denies burning, denies discharge, denies dysuria Musculoskeletal: No back pain, No joint pain All Other Systemes Reviewed Negative Unless Noted: Yes Past Tgvxyxi-Jojduj-Fbcjqx Hx Patient Social History Alcohol Use: Denies Use Alcohol Beverage of Choice: Other Recreational Drug Use: Yes Drug of Choice: marijuana Smoking Status: Current Everyday Smoker Type Used: Cigarettes Recent Foreign Travel: No Contact w/Someone Who Travel: No Recent Hopitalizations: No Immunizations Up To Date Tetanus Booster (TDap): More than 5yrs Seasonal Allergies Seasonal Allergies: No Past Medical History Surgeries: Yes Orthopedic Respiratory: Yes Asthma Cardiac: No Neurological: No Reproductive Disorders: No Sexually Transmitted Disease: No HIV/AIDS: No Genitourinary: No Gastrointestinal: No Ulcer Musculoskeletal: No Endocrine: No HEENT: No Cancer: No Psychosocial: Yes ADD/ADHD, Anxiety, Suicide Attempts, Bipolar, Depression Integumentary: No Blood Disorders: No Family Medical History FHx: COPD (chronic obstructive pulmonary disease) FHx: leukemia 19 FATHER Seizure disorder 19 MOTHER No Family History of: Cardiovascular disease Dementia Diabetes mellitus Myocardial infarction No Pertinent Family Hx, Cancer, COPD, Seizures Physical Exam Vital Signs Vital Signs - First Documented 07/27/20 01:55 Temp 36.6 Pulse 114 Resp 18 B/P (MAP) 157/100 (119) Pulse Ox 99 O2 Delivery Room Air Capillary Refill : Height, Weight, BMI Height: 6'0" Weight: 135lbs. 12.0oz. 61.147702lp; 19.00 BMI Method:Stated General Appearance: WD/WN, mild distress HEENT: PERRL/EOMI, pharynx normal Neck: full range of motion, normal inspection Cardiovascular: normal peripheral pulses, regular rate, rhythm Respiratory: no respiratory distress, no accessory muscle use Male: normal genitalia, no hernia, testicular tenderness, other (cremasteric reflex intact bilaterally) Genital/Rectal: normal genital exam (negative for discharge, tumor, calor, rubor) Neurologic/Psychiatric: alert, normal mood/affect, oriented x 3 Skin: normal color, warm/dry Progress/Results/Core Measures Suspected Sepsis SIRS Temperature: Pulse: Respiratory Rate: Blood Pressure / Mean: Results/Orders Lab Results Laboratory Tests Test 07/27/20 02:13 Range/Units Urine Color YELLOW Urine Clarity CLEAR Urine pH 7.0 5-9 Urine Specific [place] 1.020 1.016-1.022 Urine Protein NEGATIVE NEGATIVE Urine Glucose (UA) NEGATIVE NEGATIVE Urine Ketones TRACE H NEGATIVE Urine Nitrite NEGATIVE NEGATIVE Urine Bilirubin NEGATIVE NEGATIVE Urine Urobilinogen 1.0 < = 1.0 MG/DL Urine Leukocyte Esterase NEGATIVE NEGATIVE Urine RBC (Auto) TRACE-L NEGATIVE Urine RBC 0-2 /HPF Urine WBC 0-2 /HPF Urine Squamous Epithelial Cells RARE /HPF Urine Crystals PRESENT H /LPF Urine Amorphous Sediment FEW CARLEY PHOSPHATE H /LPF Urine Bacteria MODERATE H /HPF Urine Casts NONE /LPF Urine Mucus NEGATIVE /LPF Urine Culture Indicated NO My Orders Orders - SANDRA HARVEY Ua Culture If Indicated (07/27/20 01:52) Chlamydia Trachomatis Urine (07/27/20 01:52) Neis Sylvain Dna Urine Test (07/27/20 01:52) Ceftriaxone For Im Use (Rocephin For Im (07/27/20 02:15) Azithromycin Tablet (Zithromax Tablet) (07/27/20 02:15) Ketorolac Injection (Toradol Injection) (07/27/20 02:15) Lidocaine 1% Inj 20 Ml (Xylocaine 1% Inj (07/27/20 02:15) Medications Given in ED Current Medications Medications Dose Ordered Sig/Berna Route Start Time Stop Time Status Last Admin Dose Admin Azithromycin 1,000 mg ONCE ONCE PO 07/27/20 02:15 07/27/20 02:16 DC 07/27/20 02:27 1,000 MG Ceftriaxone Sodium 250 mg ONCE ONCE IM 07/27/20 02:15 07/27/20 02:16 DC 07/27/20 02:29 250 MG Ketorolac Tromethamine 60 mg ONCE ONCE IM 07/27/20 02:15 07/27/20 02:16 DC 07/27/20 02:28 60 MG Lidocaine HCl 0.9 ml ONCE ONCE INJ 07/27/20 02:15 07/27/20 02:16 DC 07/27/20 02:29 0.9 ML Vital Signs/I&O 07/27/20 01:55 Temp 36.6 Pulse 114 Resp 18 B/P (MAP) 157/100 (119) Pulse Ox 99 O2 Delivery Room Air Capillary Refill : Progress Note : Time: 02:03 Progress Note suspect a repeat epididymitis. Plan to give him a shot of Rocephin, azithromycin, Toradol. We'll attempt to collect some urinalysis. Referral to Dr. Cha, urology outpatient for recurrent epididymitis. Departure Impression Primary Impression: Epididymitis without abscess Disposition: HOME, SELF-CARE Condition: Stable Departure-Patient Inst. Decision time for Depature: 02:04 Referrals: NO,LOCAL PHYSICIAN (PCP) Primary Care Physician YAQUELIN CHA MD Patient Instructions: Epididymitis (DC) Add. Discharge Instructions: Drink plenty of fluids. Call for a follow-up appointment with the urologist, Dr. Cha in the morning. Tylenol 650 mg every 8 hours as necessary for pain. Ibuprofen 800 mg every 8 hours as necessary for pain. Hydrocodone one tablet every 6 hours as necessary for breakthrough pain. All discharge instructions reviewed with patient and/or family. Voiced understanding. Scripts Hydrocodone/Acetaminophen (Hydrocodone-Acetamin 5-325 mg) 1 Each Tablet 1 EACH PO Q6H PRN for PAIN-BREAKTHROUGH, #8 TAB 0 Refills Prov: SANDRA HARVEY 07/27/20 Doxycycline Hyclate (Doxycycline Hyclate) 100 Mg Tablet 100 MG PO BID, #20 TAB 0 Refills Prov: SANDRA HARVEY 07/27/20 Copy Copies To 1: YAQUELIN CHA MD, TITUS J Jul 27, 2020 02:01
[2020-07-27] MEDS ORDERED: HYDR-3812 PO (02:06)
[2020-07-27] MEDS ORDERED: DOXY100T2 PO (02:06)
[2020-07-27] MEDS: AZITHROMYCIN 250 MG TAB (ZITHROMAX) PO ONE (02:27)
[2020-07-27] MEDS: KETOROLAC 60 MG/2 ML VIAL IM ONE (02:28)
[2020-07-27 02:29] LABS: BILIRUBIN,URINE NEGATIVE (NEGATIVE); CLARITY,URINE CLEAR; COLOR,URINE YELLOW; GLUCOSE, URINE (UA) NEGATIVE (NEGATIVE); KETONES,URINE TRACE (NEGATIVE); LEUKOCYTE ESTERASE ,URINE NEGATIVE (NEGATIVE); NITRITE,URINE NEGATIVE (NEGATIVE); PROTEIN,URINE NEGATIVE (NEGATIVE)
[2020-07-27] MEDS: LIDOCAINE 1% INJ 20 ML 20 ML VIAL INJ ONE (02:29)
[2020-07-27] MEDS: cefTRIAXone 250 MG/ML vial (IM ONLY) IM ONE (02:29)
[2020-07-27 02:45] LABS: BACTERIA,URINE MODERATE /HPF; RBC,URINE 0-2 /HPF; WBC,URINE 0-2 /HPF
[2020-07-27 02:46] LABS: AMORPHOUS SEDIMENT,UR FEW AMOR PHOSPHATE /LPF; SQUAMOUS EPITHELIAL CELL,UR RARE /HPF
[2020-07-27 02:58] VITALS: BP 127/83
== END 2020-07-27 02:56 | disposition home or self-care (01) ==
LOC: EDUNIT# 01:44 → ER 01:48
DX: N45.1 Epididymitis (principal); F17.210 Nicotine dependence, cigarettes, uncomplicated; Z88.8 Allergy status to other drugs, medicaments and biological substances; Z80.6 Family history of leukemia
CPT/HCPCS: 36415; 81000; 87491; 87591; 99284

== ENCOUNTER 2020-08-16 22:08 | Emergency (ER) | payer MEDICAID ==
[~2020-08-16] VITALS: Ht 185.4 cm; Wt 63.5 kg
[~2020-08-16 22:08] MED LIST changes: +ACHD5005 PO; +DOXY100T2 PO
[2020-08-16 22:10] VITALS: BP 129/85
--- NOTE | 2020-08-16 22:16 | NUR ---
PT REPORTS THAT HE WAS SEEN HERE RECENTLY AND LAST ULTRA SOUND IN [facility].
[2020-08-16] MEDS ORDERED: HYDROcodone/APAP 5 MG/325 MG (LORTAB) TAB PO ONE (22:30)
[2020-08-16 22:39] LABS: BILIRUBIN,URINE NEGATIVE (NEGATIVE); CLARITY,URINE CLEAR; COLOR,URINE YELLOW; GLUCOSE, URINE (UA) NEGATIVE (NEGATIVE); KETONES,URINE NEGATIVE (NEGATIVE); LEUKOCYTE ESTERASE ,URINE NEGATIVE (NEGATIVE); NITRITE,URINE NEGATIVE (NEGATIVE); PROTEIN,URINE NEGATIVE (NEGATIVE)
[2020-08-16 22:44] LABS: BACTERIA,URINE NEGATIVE /HPF; RBC,URINE RARE /HPF; SQUAMOUS EPITHELIAL CELL,UR RARE /HPF
--- NOTE | 2020-08-16 23:05 | ED GU-Male ---
General Stated Complaint: TESTICAL PAIN Nursing Triage Note: PT REPORTS TESTICULAR PAIN SINCE LAST WEEK, STATES TOOK HIS LAST hYDROCODONE AT NOON, TYLENOL 650 MG AND IBUPROFEN 400 MG AT 1900. Source: patient Exam Limitations: no limitations History of Present Illness Date Seen by Provider: Aug 16, 2020 Time Seen by Provider: 22:09 Initial Comments Here with report of bilateral testicular pain. He's had this over the last few weeks and has been seen here and that she needed. Had ultrasound which showed hydroceles at [place] and this was also noted here earlier this year. Unchanged pain presentation per the patient. He took a hydrocodone this morning and that helped for a while but he is out of those. He was prescribed 8 of those 20 days ago. He is trying to follow-up with urology but apparently is having some difficulty with appointment due to a bill. He is going to follow up with the urologist in [place] or his primary doctor. Denies dysuria or hematuria. Denies penile discharge. Sexually active one week ago without problems with single partner. Timing/Duration: other (2-3 weeks) Severity/Quality: moderate, aching Location: scrotal Radiation: none Activities at Onset: none Sexual Becker History: less than 2 months ago, single partner Modifying Factors: Improves With Resting Associated Symptoms: No dysuria, No fever/chills, No swelling, No urinary frequency Allergies and Home Medications Allergies Coded Allergies: lithium (Verified Allergy, Unknown, 01/24/20) paliperidone (Verified Allergy, Unknown, 01/24/20) Home Medications Doxycycline Hyclate 100 Mg Tablet, 100 MG PO BID Prescribed by: SANDRA HARVEY on 07/27/20 0206 Hydrocodone/Acetaminophen 1 Each Tablet, 1 TAB PO Q6H Prescribed by: LOC REID on 01/24/20 1536 Hydrocodone/Acetaminophen 1 Each Tablet, 1 EACH PO Q6H PRN for PAIN-BREAKTHROUGH Prescribed by: SANDRA HARVEY on 07/27/20 0206 Hydrocodone/Acetaminophen 1 Each Tablet, 1 TAB PO Q6H PRN for PAIN-MODERATE (5- 7) Prescribed by: KAMILA NAILS on 08/16/20 2306 Patient Home Medication List Home Medication List Reviewed: Yes Review of Systems Review of Systems Constitutional: see HPI; No chills, No fever Respiratory: no symptoms reported Cardiovascular: no symptoms reported Gastrointestinal: no symptoms reported Genitourinary: see HPI; denies flank pain, denies hematuria; pain Skin: no symptoms reported Psychiatric/Neurological: No Symptoms Reported Past Xynkolk-Luhlyt-Wmqylf Hx Past Med/Social Hx: Reviewed Nursing Past Med/Soc Hx Patient Social History Alcohol Use: Denies Use Alcohol Beverage of Choice: Other Recreational Drug Use: No Drug of Choice: marijuana Smoking Status: Current Someday Smoker Type Used: Cigarettes Recent Foreign Travel: No Contact w/Someone Who Travel: No Recent Infectious Disease Expo: No Recent Hopitalizations: No Immunizations Up To Date Tetanus Booster (TDap): More than 5yrs Seasonal Allergies Seasonal Allergies: No Past Medical History Surgeries: Yes Orthopedic Respiratory: Yes Asthma Cardiac: No Neurological: No Reproductive Disorders: No Sexually Transmitted Disease: No HIV/AIDS: No Genitourinary: No Gastrointestinal: No Ulcer Musculoskeletal: No Endocrine: No HEENT: No Cancer: No Psychosocial: Yes ADD/ADHD, Anxiety, Suicide Attempts, Bipolar, Depression Integumentary: No Blood Disorders: No Family Medical History Reviewed Nursing Family Hx FHx: COPD (chronic obstructive pulmonary disease) FHx: leukemia 19 FATHER Seizure disorder 19 MOTHER No Family History of: Cardiovascular disease Dementia Diabetes mellitus Myocardial infarction No Pertinent Family Hx, Cancer, COPD, Seizures Physical Exam Vital Signs Vital Signs - First Documented 08/16/20 22:10 Temp 36.9 Pulse 81 Resp 16 B/P (MAP) 139/98 (112) Pulse Ox 100 O2 Delivery Room Air Capillary Refill : Less Than 3 Seconds Height, Weight, BMI Height: 6'0" Weight: 135lbs. 12.0oz. 61.575316vo; 18.00 BMI Method:Stated General Appearance: WD/WN, mild distress Cardiovascular: regular rate, rhythm, no murmur Respiratory: lungs clear Gastrointestinal: non tender, soft (and ordered a little else about 80) Male: testicular tenderness (bilateral), other (retains cremasteric reflex bilateral. No significant swelling. No masses noted on exam to either testicle. No penile discharge. No hernia noted bilateral) Back: normal inspection, no CVA tenderness, no vertebral tenderness Neurologic/Psychiatric: alert, oriented x 3 Skin: normal color, warm/dry Progress/Results/Core Measures Suspected Sepsis Recent Fever Within 48 Hours: No Infection Criteria Present: None New/Unexplained Altered Menta: No Sepsis Screen: No Definite Risk SIRS Temperature: Pulse: 81 Respiratory Rate: 16 Blood Pressure 139 /98 Mean: 112 Results/Orders Lab Results Laboratory Tests Test 08/16/20 22:24 Range/Units Urine Color YELLOW Urine Clarity CLEAR Urine pH 7.0 5-9 Urine Specific [place] 1.010 L 1.016-1.022 Urine Protein NEGATIVE NEGATIVE Urine Glucose (UA) NEGATIVE NEGATIVE Urine Ketones NEGATIVE NEGATIVE Urine Nitrite NEGATIVE NEGATIVE Urine Bilirubin NEGATIVE NEGATIVE Urine Urobilinogen 1.0 < = 1.0 MG/DL Urine Leukocyte Esterase NEGATIVE NEGATIVE Urine RBC (Auto) NEGATIVE NEGATIVE Urine RBC RARE /HPF Urine WBC NONE /HPF Urine Squamous Epithelial Cells RARE /HPF Urine Crystals NONE /LPF Urine Bacteria NEGATIVE /HPF Urine Casts NONE /LPF Urine Mucus NEGATIVE /LPF Urine Culture Indicated NO My Orders Orders - KAMILA NAILS MD Ua Culture If Indicated (08/16/20 22:20) Hydrocodone/Apap 5/325 Tablet (Lortab 5 (08/16/20 22:30) Medications Given in ED Current Medications Medications Dose Ordered Sig/Berna Route Start Time Stop Time Status Last Admin Dose Admin Acetaminophen/ Hydrocodone Bitart 1 tab ONCE ONCE PO 08/16/20 22:30 08/16/20 22:31 DC 08/16/20 22:53 1 TAB Vital Signs/I&O 08/16/20 22:10 Temp 36.9 Pulse 81 Resp 16 B/P (MAP) 139/98 (112) Pulse Ox 100 O2 Delivery Room Air Capillary Refill : Less Than 3 Seconds Blood Pressure Mean: 112 Progress Note : Progress Note Seen and evaluated. Hydrocodone 5/325 one tab by mouth. Records review. UA ordered. Monitor patient. 2305: UA negative. Pain a little better. I did write a prescription for short course of pain medicine and instructed him on follow-up. He again stated he is trying to get follow-up with urology in [place]. Discharged home with return precautions. Patient verbalize understanding of instructions and agreement with plan. Departure Impression Primary Impression: Hydrocele, bilateral Disposition: HOME, SELF-CARE Condition: Stable Departure-Patient Inst. Decision time for Depature: 23:03 Referrals: [facility] [place] NO,LOCAL PHYSICIAN (PCP) Primary Care Physician YAQUELIN CHA MD Patient Instructions: Hydrocele Add. Discharge Instructions: You need to follow-up with the urologist listed or of your choosing. Follow-up with your doctor this week or early next week for recheck and further evaluation. You may continue ibuprofen 600 mg every 8 hours as needed for pain. You may take Tylenol/acetaminophen 1000 mg every 8 hours as needed for pain if you're not taking the prescribed pain medicine. Do not take both at the same time as they both have acetaminophen in them. Return for worse pain, swelling, difficulties with urination, fever or other concerns as needed. Scripts Hydrocodone/Acetaminophen (Hydrocodone/Acetaminophen 5 MG/325 MG TAB) 1 Each Tablet 1 TAB PO Q6H PRN for PAIN-MODERATE (5-7) MDD 10 TABS for 7 Days, #10 TAB 0 Refills Prov: KAMILA NAILS MD 08/16/20 KAMILA NAILS MD Aug 16, 2020 23:05
[2020-08-16] MEDS ORDERED: HYDR-4226 PO (23:06)
== END 2020-08-16 23:13 | disposition home or self-care (01) ==
LOC: EDUNIT# 22:08 → ER 22:10
DX: N43.3 Hydrocele, unspecified (principal); F17.210 Nicotine dependence, cigarettes, uncomplicated; Z88.8 Allergy status to other drugs, medicaments and biological substances; Z80.6 Family history of leukemia
CPT/HCPCS: 81000; 99283

== ENCOUNTER 2020-09-24 18:52 | Emergency (ER) | payer MEDICAID ==
[~2020-09-24] VITALS: Ht 185.4 cm; Wt 64.0 kg
[2020-09-24 19:06] VITALS: BP 143/91
[2020-09-24 19:25] LABS: BILIRUBIN,URINE NEGATIVE (NEGATIVE); CLARITY,URINE CLEAR; COLOR,URINE YELLOW; GLUCOSE, URINE (UA) NEGATIVE (NEGATIVE); KETONES,URINE NEGATIVE (NEGATIVE); LEUKOCYTE ESTERASE ,URINE NEGATIVE (NEGATIVE); NITRITE,URINE NEGATIVE (NEGATIVE); PROTEIN,URINE NEGATIVE (NEGATIVE)
[2020-09-24 19:32] LABS: BACTERIA,URINE NEGATIVE /HPF
[2020-09-24 19:37] LABS: AMPHETAMINE SCREEN, URINE NEGATIVE (NEGATIVE); BARBITURATE SCREEN URINE NEGATIVE (NEGATIVE); BENZODIAZEPINES SCREEN URINE NEGATIVE (NEGATIVE); CANNABINOID SCREEN, URINE NEGATIVE (NEGATIVE); COCAINE SCREEN URINE NEGATIVE (NEGATIVE); METHADONE STAT NEGATIVE (NEGATIVE); METHAMPHETAMINE SCREEN URINE S NEGATIVE (NEGATIVE); OPIATE SCREEN URINE POSITIVE (NEGATIVE); OXYCODONE STAT NEGATIVE (NEGATIVE); PROPOXYPHENE STAT NEGATIVE (NEGATIVE); TRICYCLIC ANTIDEPRESSANTS SCRE NEGATIVE (NEGATIVE)
--- NOTE | 2020-09-24 19:40 | ED Abdominal Pain ---
General Chief Complaint: Male Reproductive Stated Complaint: ABD PAIN Nursing Triage Note: intermittant right testicular pain. Sepsis Screen: No Definite Risk Source of Information: Patient Exam Limitations: No Limitations History of Present Illness Date Seen by Provider: Sep 24, 2020 Time Seen by Provider: 19:30 Initial Comments This is a 35 yo male who presents with posterior testicular pain and bilateral swelling. States he has a history of scrotal pain and swelling and has been diagnosed with Epididymitis in the past. Reports todays symptoms are same as previous episodes. Pain is sharp, intermittent, and localized behind his testicles, currently rates 8/10. He took a Hydrocodone from a previous prescription this morning with some relief in symptoms. He reports he has been unable to follow up with urology as directed because he owes money to the office. The last episode was approximately 5 weeks ago and states he was seen and treated at [facility]. He reports difficulty fulling emptying his bladder at times. Denies penile discharge, rashes/lesions. Sexually active with one female partner. Denies alcohol or drug use. Allergies and Home Medications Allergies Coded Allergies: lithium (Verified Allergy, Unknown, 01/24/20) paliperidone (Verified Allergy, Unknown, 01/24/20) Home Medications Doxycycline Hyclate 100 Mg Tablet, 100 MG PO BID Prescribed by: SANDRA HARVEY on 07/27/20205 Doxycycline Hyclate 100 Mg Tablet, 100 MG PO BID Prescribed by: CESAR ASH on 09/24/201956 Hydrocodone/Acetaminophen 1 Each Tablet, 1 TAB PO Q6H Prescribed by: LOC REID on 01/24/20 153 Hydrocodone/Acetaminophen 1 Each Tablet, 1 EACH PO Q6H PRN for PAIN-BREAKTHROUGH Prescribed by: SANDRA HARVEY on 07/27/20205 Hydrocodone/Acetaminophen 1 Each Tablet, 1 TAB PO Q6H PRN for PAIN-MODERATE (5- 7) Prescribed by: KAMILA NAILS on 08/16/20 2306 Patient Home Medication List Home Medication List Reviewed: Yes Review of Systems Review of Systems Constitutional: see HPI EENTM: No Symptoms Reported Respiratory: No Symptoms Reported Cardiovascular: No Symptoms Reported Gastrointestinal: No Symptoms Reported Genitourinary: See HPI Musculoskeletal: no symptoms reported Skin: no symptoms reported Psychiatric/Neurological: No Symptoms Reported Endocrine: No Symptoms Reported Hematologic/Lymphatic: No Symptoms Reported Past [id number]-Yivhwn Hx Patient Social History Alcohol Use: Occasionally Uses Number of Drinks Today: II Alcohol Beverage of Choice: Other Recreational Drug Use: Yes Drug of Choice: cannibus Smoking Status: Current Everyday Smoker Type Used: Cigarettes Recent Foreign Travel: No Contact w/Someone Who Travel: No Recent Infectious Disease Expo: No Recent Hopitalizations: No Immunizations Up To Date Tetanus Booster (TDap): More than 5yrs Seasonal Allergies Seasonal Allergies: No Past Medical History Surgeries: Yes Orthopedic Respiratory: No Asthma Cardiac: No Neurological: No Reproductive Disorders: No Sexually Transmitted Disease: No HIV/AIDS: No Genitourinary: Yes (epididymitis) Gastrointestinal: No Ulcer Musculoskeletal: No Endocrine: No HEENT: No Cancer: No Psychosocial: Yes ADD/ADHD, Anxiety, Suicide Attempts, Bipolar, Depression Integumentary: No Blood Disorders: No Family Medical History FHx: COPD (chronic obstructive pulmonary disease) FHx: leukemia 19 FATHER Seizure disorder 19 MOTHER No Family History of: Cardiovascular disease Dementia Diabetes mellitus Myocardial infarction No Pertinent Family Hx, Cancer, COPD, Seizures Physical Exam Vital Signs Vital Signs - First Documented 09/24/20 19:06 Temp 36.7 Pulse 76 Resp 16 B/P (MAP) 143/91 (108) Pulse Ox 98 O2 Delivery Room Air Capillary Refill : Less Than 3 Seconds Height/Weight/BMI Height: 6'0" Weight: 135lbs. 12.0oz. [id number]; 18.00 BMI Method:Stated General Appearance: WD/WN, no apparent distress HEENT: PERRL/EOMI, pharynx normal Neck: full range of motion, normal inspection Respiratory: lungs clear, normal breath sounds Cardiovascular: regular rate, rhythm, no murmur Gastrointestinal: normal bowel sounds, non tender, soft Genital/Rectal: normal genital exam, other (No penile discharge, rashes or lesions appreciated. Cremasteric reflex retained bilaterally. ) Extremities: normal range of motion, non-tender, normal inspection, no pedal edema Back: normal inspection Male: No erythema; other (tenderness of the epididymis, minimal swelling) Neurologic/Psychiatric: no motor/sensory deficits, alert, normal mood/affect, oriented x 3 Skin: normal color, warm/dry Progress/Results/Core Measures Results/Orders Lab Results Laboratory Tests Test 09/24/20 19:17 Range/Units Urine Color YELLOW Urine Clarity CLEAR Urine pH 7.0 5-9 Urine Specific [place] 1.020 1.016-1.022 Urine Protein NEGATIVE NEGATIVE Urine Glucose (UA) NEGATIVE NEGATIVE Urine Ketones NEGATIVE NEGATIVE Urine Nitrite NEGATIVE NEGATIVE Urine Bilirubin NEGATIVE NEGATIVE Urine Urobilinogen 1.0 < = 1.0 MG/DL Urine Leukocyte Esterase NEGATIVE NEGATIVE Urine RBC (Auto) NEGATIVE NEGATIVE Urine RBC NONE /HPF Urine WBC NONE /HPF Urine Squamous Epithelial Cells NONE /HPF Urine Crystals NONE /LPF Urine Bacteria NEGATIVE /HPF Urine Casts NONE /LPF Urine Mucus NEGATIVE /LPF Urine Culture Indicated NO Urine Opiates Screen POSITIVE H NEGATIVE Urine Oxycodone Screen NEGATIVE NEGATIVE Urine Methadone Screen NEGATIVE NEGATIVE Urine Propoxyphene Screen NEGATIVE NEGATIVE Urine Barbiturates Screen NEGATIVE NEGATIVE Ur Tricyclic Antidepressants Screen NEGATIVE NEGATIVE Urine Phencyclidine Screen NEGATIVE NEGATIVE Urine Amphetamines Screen NEGATIVE NEGATIVE Urine Methamphetamines Screen NEGATIVE NEGATIVE Urine Benzodiazepines Screen NEGATIVE NEGATIVE Urine Cocaine Screen NEGATIVE NEGATIVE Urine Cannabinoids Screen NEGATIVE NEGATIVE My Orders Orders - CESAR ASH APRN Drug Screen Stat (Urine) (09/24/20 19:18) Ua Culture If Indicated (09/24/20 19:18) Ceftriaxone For Im Use (Rocephin For Im (09/24/20 19:45) Lidocaine 1% Inj 20 Ml (Xylocaine 1% Inj (09/24/20 19:45) Ketorolac Injection (Toradol Injection) (09/24/20 19:45) Doxycycline Hyclate Tablet (Vibramycin T (09/24/20 19:45) Medications Given in ED Current Medications Medications Dose Ordered Sig/Berna Route Start Time Stop Time Status Last Admin Dose Admin Ceftriaxone Sodium 250 mg ONCE ONCE IM 09/24/20 19:45 09/24/20 19:47 DC 09/24/20 20:09 250 MG Doxycycline Hyclate 100 mg ONCE ONCE PO 09/24/20 19:45 09/24/20 19:47 DC 09/24/20 20:09 100 MG Ketorolac Tromethamine 30 mg ONCE ONCE IM 09/24/20 19:45 09/24/20 19:47 DC 09/24/20 20:10 30 MG Lidocaine HCl 0.9 ml ONCE ONCE INJ 09/24/20 19:45 09/24/20 19:47 DC 09/24/20 20:10 0.9 ML Vital Signs/I&O 09/24/20 09/24/20 19:06 20:10 Temp 36.7 36.7 Pulse 76 Resp 16 B/P (MAP) 143/91 (108) Pulse Ox 98 O2 Delivery Room Air Blood Pressure Mean: 108 Progress Progress Note : Progress Note Epididymitis is recurrent issue. Given Rocephin 250mg IM, Doxycycline 100mg PO, and Toradol 30mg IM in ED. Written prescription for Doxycycline provided. Discussed following up with PCP in AM to schedule a follow up appointment. Additionally discussed possible financial assistance recourses to assist with outstanding fees. Reviewed POC and he is agreeable with plan. Departure Impression Primary Impression: Epididymitis Disposition: HOME, SELF-CARE Condition: Stable Departure-Patient Inst. Referrals: NO,LOCAL PHYSICIAN (PCP/Family) Primary Care Physician Patient Instructions: Epididymitis (DC) Add. Discharge Instructions: Plan: 1. Discharge home. 2. Rest. Keep scrotum elevated and wear supportive underwear. 3. Apply cold packs to affected are as needed for discomfort. 4. Take Doxycycline twice a day as directed and complete full course. Limit sun exposure while taking. 5. Avoid sexual activity until you have completed your antibiotics. 6. Follow up with primary care provider or urology in AM. Call for an appoint ment. 7. Return to ER for any new or concerning symptoms. All discharge instructions reviewed with patient and/or family. Voiced understanding. Scripts Doxycycline Hyclate (Doxycycline Hyclate) 100 Mg Tablet 100 MG PO BID for 10 Days, #20 TAB 0 Refills Prov: CESAR ASH [employer] 09/24/20 CESAR ASH [employer] SAL[employer]ATE Sep 24, 2020 19:40
[2020-09-24] MEDS ORDERED: KETOROLAC 30 MG/ML VIAL IM ONE (19:45)
[2020-09-24] MEDS ORDERED: LIDOCAINE 1% INJ 20 ML 20 ML VIAL INJ ONE (19:45)
[2020-09-24] MEDS ORDERED: DOXYCYCLINE 100 MG (VIBRAMYCIN) TABLET PO ONE (19:45)
[2020-09-24] MEDS ORDERED: cefTRIAXone 250 MG/ML vial (IM ONLY) IM ONE (19:45)
[2020-09-24] MEDS ORDERED: DOXY100T2 PO (19:57)
== END 2020-09-24 20:18 | disposition home or self-care (01) ==
LOC: EDUNIT# 18:52 → ER 18:53
DX: N45.1 Epididymitis (principal); F17.210 Nicotine dependence, cigarettes, uncomplicated; Z82.49 Family history of ischemic heart disease and other diseases of the circulatory system; Z80.6 Family history of leukemia; Z88.8 Allergy status to other drugs, medicaments and biological substances
CPT/HCPCS: 80306; 81000; 99284